=== PATIENT | female | born 2000 | race Caucasian/White ===

== ENCOUNTER 2019-05-18 07:37 | Inpatient (IN) | payer OTHER ==
[2019-05-18] MEDS ORDERED: Magnesium 2 GM/50 ML BAG (IN WATER) ONE ×2 (08:02→09:25)
[2019-05-18] MEDS ORDERED: Labetalol HCl 100 MG/20 ML VIAL ONE ×2 (08:02→15:15)
[2019-05-18 08:24] LABS: #Eosinphils 0.1 thou/uL (0.0-0.7); #Lymphocytes 1.6 thou/uL (1.20-3.40); #Neutrophils 10.6 thou/uL (1.40-6.50); %Basophils 0.1 % (0.0-1.0); %Eosinophils 0.8 % (0.0-10.0); %Lymphocytes 12.1 % (28.0-48.0); %Monocytes 7.2 % (0.0-4.0); %Neutrophils 79.8 % (31.0-61.0); Mean Corpuscular HGB CONC 31.8 g/dL (32.0-36.0); Mean Corpuscular Hemoglobin 24.7 pg (25.0-35.0); Mean Corpuscular Volume 77.7 fL (78.0-98.0); Mean Platelet Volume 8.5 fL (7.4-10.4); Platelet Count 278 thou/uL (130-400); RBC Distribution Width 16.2 % (11.5-14.5); Red Blood Cell (RBC) Count 2.82 mill/uL (4.00-5.20); White Blood Cell (WBC) Count 13.2 thou/uL (4.8-10.8)
[2019-05-18 08:32] LABS: Prothrombin Time 13.4 SEC (12.0-14.7)
[2019-05-18 08:33] LABS: PTT 38.5 SEC (22.9-36.1)
[2019-05-18 08:34] LABS: ALT (SGPT) 19 U/L (8-55); AST (SGOT) 20 U/L (5-34); Albumin 3.2 g/dL (3.5-5.0); Alkaline Phosphatase 114 U/L (40-100); Anion Gap 16 mmol/L (10-20); BUN (Urea Nitrogen) 6 mg/dL (7.0-18.7); Bilirubin, Total 0.3 mg/dL (0.2-1.2); Calc. Creatinine Clearance 0 mL/min (70-130); Calcium 8.3 mg/dL (7.8-10.44); Carbon Dioxide 20 mmol/L (22-29); Chloride 107 mmol/L (98-107); Estimated GFR-MDRD Greater than 90; Globulin 2.4 g/dL (2.4-3.5); Glucose 83 mg/dL (70-105); Potassium 3.3 mmol/L (3.5-5.1); Protein, Total 5.6 g/dL (6.0-8.3); Sodium 140 mmol/L (136-145)
[2019-05-18 08:36] LABS: Acetaminophen Less than 6.0 mcg/mL (10.0-30.0); Alcohol Less than 10 mg/dL (Less than 10); Magnesium 1.7 mg/dL (1.7-2.2); Salicylate Less than 8.0 mg/dL (15.0-30.0)
[2019-05-18 08:54] LABS: Hypochromia SLIGHT = 6-15 cells (100X) (0-5/hpf); MDiff Complete? YES; Microcytosis SLIGHT = 6-15 cells (100X) (0-5/hpf); Platelet Morphology Comment Appears Adequate; Polychromasia SLIGHT = 2-3 cells (100X) (0-2/hpf)
[2019-05-18 09:08] LABS: Bilirubin Negative (Negative); Blood, Urine Trace (Negative); Clarity Clear (Clear); Glucose, Urine (Dipstick) Normal (Negative); Leukocyte 75 Leu/uL (Negative); Nitrite Negative (Negative); Protein, Urine (Dipstick) Negative (Neg-Trace); RBC/HPF 0-3 HPF (0-3); Squamous Epithelial 0-3 HPF (0-3); Urobilinogen Normal mg/dL (Less than 2)
--- NOTE | 2019-05-18 09:10 | RAD ---
EXAM: CHEST ONE VIEW HISTORY: Dyspnea. Seizure activity this morning. Patient does not recall events. COMPARISON: None FINDINGS: The cardiac silhouette and pulmonary vasculature is within normal limits. The lungs are clear. The os seous structures are intact. IMPRESSION: No acute cardiopulmonary process.
[2019-05-18] MEDS ORDERED: Calcium Gluconate 4.6 MEQ in Sodium Chloride 0.9% 100 ML IVPB PRN (09:16)
[2019-05-18 09:18] LABS: Bacteria/HPF 1+ HPF (None Seen)
[2019-05-18 09:21] LABS: Amphetamine Not Detected (NotDetected); Barbiturates Screen Not Detected (NotDetected); Benzodiazepine Screen Not Detected (NotDetected); Cocaine Metabolite Screen Not Detected (NotDetected); Medtox Control Line Valid? VALID (VALID); Medtox Reader # READER 1; Methadone Not Detected (NotDetected); Methamphetamine Not Detected (NotDetected); Opiate Screen Not Detected (NotDetected); Oxycodone Screen Not Detected (NotDetected); Phencyclidine (PCP) Not Detected (NotDetected); THC/Cannabinoid Screen Not Detected (NotDetected); Tricyclic Screen Not Detected (NotDetected)
[2019-05-18] MEDS ORDERED: Magnesium Sulfate 20 gm/500 ml 20 GM/500 ML BAG IVPB SCH (09:30)
--- NOTE | 2019-05-18 09:36 | PDOC.EVN ---
Event Note - Event Note Event Note: OBGYN: Aware of Treponen I elevation in this patient of 0.1. Treponin I can be elevated after SZ activity. Nonetheless, I will order Cardiac ECHO to be conservative. Reviewed patient with the service tech/welder.
--- NOTE | 2019-05-18 09:44 | CT ---
HEAD CT WITHOUT CONTRAST: Date: 05/18/2019 HISTORY: Altered mental status. Seizure. COMPARISON: None. FINDINGS: There is a posterior left parietal scalp hematoma, near the vertex. No parenchymal hemorrhage. No ext ra-axial hematoma. No midline shift. Basilar cisterns are patent. Brain volume is age-appropriate. Co rtical modi-white matter differentiation is preserved. No hydrocephalus. Adequate aeration of the sin uses and mastoid air cells. Intact calvarium. IMPRESSION: 1. No acute intracranial process. 2. Left parietal scalp hematoma, near the vertex. POS: H
--- NOTE | 2019-05-18 09:51 | HP ---
TIME: 0920 hours. The time of initial acceptance for labor and delivery admission was 0910 hours. LOCATION: ER bed 3. REASON FOR ADMISSION: Suspected eclampsia. The patient is currently being escorted to Labor and Delivery with one of our labor and delivery nurses, and history and physical is being done by information I have received by direct verbal communication from Dr. Hurley, who is the emergency room provider today. HISTORY OF PRESENT ILLNESS: This is a 18-year-old G1, P1, who is status post vaginal delivery on Friday of last week, who was sent home on Friday at [facility]. We do not have those records. The patient's roommate says that she witnessed the patient having a seizure this morning at approximately 0600 hours. She was brought to the hospital for evaluation. On arrival to the ER, her pulse was 130 and her blood pressure was 159/112. The ER physician administered 2 g of magnesium sulfate IV. In the ER, the patient has received a CT scan of the head, which is pending, this was ordered due to the new onset seizure activity and the contusion that is periorbital on exam. The patient has also received labetalol 2 mg IV at 0808 in the ER per the ER physician report. The patient has also had a chest x-ray which is pending. I have taken the report on the patient as of 10 minutes ago and have accepted the patient for labor and delivery acute transport for suspected eclampsia. The patient is not currently postictal. It is important to note that this baby was for adoption and the parents were unaware of the patient's or delivery. However, the patient has her parents in attendance now at the room and they have been briefed on the state of events. PAST MEDICAL HISTORY: No evidence of prior hypertension per the ER physician. MEDICATIONS: No antihypertensive medications were in use. ALLERGIES: UNKNOWN AT THIS TIME, BUT WE WILL COMPLETE THIS AFTER I EVALUATE THE PATIENT. SURGERIES: Unknown at this time, but I will complete after I evaluate the patient. PHYSICAL EXAMINATION: The patient's blood pressure is 159/103, O2 saturation is 96%, and pulse is 110. This is after the 20 mg of labetalol. LABORATORY ASSESSMENT: Her CMP is within normal limits and her CBC shows a hemoglobin of 7 with a hematocrit of 22, and platelets that are normal of 278. Urine toxicology is pending. The ER physician states that the patient has a troponin level that was abnormal, but this is hard to read in the state and status post eclampsia. ASSESSMENT: This is a patient of 6 days from [facility], who is a 18-year-old G1, P1, with new onset seizure and hypertension with a diagnosis most compatible with eclampsia. Transport to Labor and Delivery is in process. PLAN: 1. Labor and delivery monitoring and magnesium sulfate. 2. As the patient received 2 g of magnesium sulfate, which is under the loading dose of 4 to 6 g, I have ordered another 2 g stat to be given in the ER before she becomes subtherapeutic. That initial magnesium dose was given at [address] scan results and chest x-ray results. 4. Urine toxicology pending. 5. Close monitoring in Labor and Delivery per protocol. Job ID: [id number]
--- NOTE | 2019-05-18 10:15 | PDOC.EVN ---
Event Note - Event Note Event Note: Head CT and CXR are both negative UTox was normal
--- NOTE | 2019-05-18 10:18 | PDOC.EVN ---
Event Note - Event Note Event Note: At 1017...patient now in [facility] in L&D
--- NOTE | 2019-05-18 10:23 | PRG ---
DATE OF SERVICE: 05/18/2019 Please label this status update on transport. In brief, I just talked to Pam, our L and D nurse, who ia with the patient in the ER. The patient's blood pressure is still elevated at over 160/110. However , she is currently getting her cardiac echo at bedside. As soon as that echo is done, we will transport her to Labor and Delivery and continue to treat her acute hypertension. I am on my way there now from L&D. Job ID: [id number] [facility]
--- NOTE | 2019-05-18 10:27 | ER ---
DATE OF SERVICE: 05/18/2019 LOCATION: ER, bed 3. OBGYN BEDSIDE EVAL In brief, I have now down in the ER and I have evaluated the patient at bedside. There is no evidence that she is postictal. She states that she was told that she had high blood pressure during her delivery, but never received magnesium sulfate nor was she sent home on any hypertensive medication. Her parents are at bedside. Her parents stated that about 3 years ago she was having some petit mal/absence-style seizures, for which she was evaluated at [facility]. They never gave her a formal diagnosis and she was never placed on any antiepileptic medications. She has had no similar activity for 2 to 3 years. I was at the bedside during the cardiac echo, and after the echo performance, away from the family, the heavy equipment technician told me that there was some wall thickening, which may be compatible with chronic hypertension. There is normal ejection fraction. I will await the formal echo result by Dr. Roman, who is on-call today. I have briefed her on the patient's situation. We are in the process of giving maintenance magnesium sulfate IV prior to transport to Labor and Delivery. My working diagnosis is still new-onset preeclampsia as the seizure activity was more grand mal by her roommate description versus petit mal. Job ID: [id number] [facility]
[2019-05-18] MEDS: Bacitracin Zinc Ointment 30 gm TUBE TOP SCH (11:37)
[2019-05-18 12:56] LABS: Troponin I 0.187 ng/mL (< 0.028)
[2019-05-18 13:21] VITALS: BMI 27.4
--- NOTE | 2019-05-18 15:13 | PDOC.EVN ---
Event Note - Event Note Event Note: Called for BP 162/101. I have ordered labetolol 40mg SIVP X 1 now. She has received 60 total prior to this dose. Mild TARIQ reported...Mag in use. Will order Tylenol as well.
[2019-05-18] MEDS ORDERED: Labetalol HCl 100 MG/20 ML VIAL SLOW IVP SCH (15:15)
[2019-05-18 15:23] LABS: Troponin I 0.251 ng/mL (< 0.028)
[2019-05-18] MEDS: Acetaminophen 500 MG TAB PO PRN (15:25)
[2019-05-18] MEDS ORDERED: FLU VACC QS2019-20(6MOS UP)/PF 60 MCG/0.5 ML SYRINGE IM ONE (15:45)
--- NOTE | 2019-05-18 15:47 | PDOC.EVN ---
Event Note - Event Note Event Note: Lasix 20 mg SIVP x 1 now ordered for SBP 162/90...2+ Bilateral edema
[2019-05-18] MEDS ORDERED: Furosemide 20 MG/2 ML VIAL SLOW IVP SCH (16:00)
--- NOTE | 2019-05-18 22:46 | PDOC.EVN ---
Event Note - Event Note Event Note: BP Bed check: BPs ok...continue magSulfate
--- NOTE | 2019-05-19 07:06 | PDOC.EVN ---
Event Note - Event Note Event Note: OBGYN 0700 HD2 (admitted 05/18/19) Doing well. Mag in use No severe pressures overnight UOP excellant and is now negative in I/) (UOP> intake) Mag off around 1000 this AM Follow off mag then
[2019-05-19] MEDS: Acetaminophen 500 MG TAB PO PRN ×2 (07:25→22:14)
[2019-05-19] MEDS: Bacitracin Zinc Ointment 30 gm TUBE TOP SCH (11:44)
--- NOTE | 2019-05-19 13:53 | PDOC.EVN ---
Event Note - Event Note Event Note: Received report from Dr. Rodriguez this AM. 18 yo WF s/p 1 week ago presented with eclamptic sz. Workup has included negative CT, CXR, ECHO. No c/o at present. Mg x 24 hrs, stopped at 10AM. BPs 130-140 systolic. Will transfer to floor.
[2019-05-19] MEDS: Labetalol 100 MG TAB PO SCH (21:32)
[2019-05-20] MEDS: Bacitracin Zinc Ointment 30 gm TUBE TOP SCH ×2 (03:18→08:47)
--- NOTE | 2019-05-20 06:38 | PDOC.PP ---
Post Progress Note Post Day #: PPD8 Subjective: Feeling good this AM. No specific complaints. PO intake tolerated: yes Ambulation: yes Vital Signs (12 hours) Temp Pulse Resp BP BP Pulse Ox 05/20/19 06:06 98.5 F 90 14 130/93 H 05/20/19 04:00 98.2 F 87 16 136/91 H 05/19/19 22:40 98 140/82 05/19/19 22:16 90 157/100 H 05/19/19 21:32 88 157/100 H 05/19/19 21:30 88 157/100 H 05/19/19 20:38 90 156/96 H 05/19/19 20:22 98.8 F 97 16 157/105 H 95 Weight Weight 74.843 kg - Physical Examination General: NAD Respiratory: non-labored breathing Neurological: no gross focal deficits Psychiatric: normal affect Result Diagrams: 05/18/19 08:03 05/18/19 08:03 - Assessment/Plan Doing well s/p eclamptic seizure. Mg turned off at 10 a yesterday. Labetalol 100 mg BID added last PM, BPs improved since that time. Would consider DC either late this PM or in AM.
[2019-05-20 08:41] VITALS: TEMP 98.1
[2019-05-20] MEDS: Labetalol 100 MG TAB PO SCH (08:45)
[2019-05-20 11:58] VITALS: BP 137/79
--- NOTE | 2019-05-20 16:03 | DIS ---
DATE OF ADMISSION: 05/18/2019 DATE OF DISCHARGE: 05/20/2019 TIME OF SERVICE: 1500 hours. PRINCIPAL ADMITTING DIAGNOSIS: eclampsia. SECONDARY DISCHARGE DIAGNOSIS: Persistent hypertension, . SUMMARY OF HOSPITAL COURSE: The patient was brought in early in the morning of 05/18 with a eclamptic seizure. She was noted to be approximately 6 days . She was found to have a seizure at home and brought in and noted to have blood pressure 159/112. CT evaluation was consistent with eclampsia with occipital lobe edema. Further workup was unremarkable. The patient received magnesium sulfate for 24 hours and was started on labetalol 100 p.o. b.i.d. She did well, had no further seizures, and blood pressure was 130s systolic on labetalol post discontinuation of magnesium sulfate. She is discharged home with 2 weeks of labetalol 100 p.o. b.i.d. She is going to follow up with her [facility]. Of note, baby was put up for adoption after delivery. The patient knows ER precautions for worsening headache, worsening blurred vision, etc. Job ID: [id number]
== END 2019-05-20 15:48 | disposition home or self-care (01) | DRG 776 ==
LOC: ERS 07:37 → L&D 09:47 → 3SW 05-19 14:22
PROVIDERS: ADMIT Obstetrics & Gynecology; ATTEND Obstetrics & Gynecology
DX: O15.2 Eclampsia complicating the puerperium (principal); O16.5 Unspecified maternal hypertension, complicating the puerperium
CPT/HCPCS: 36415; 70450; 71045; 80053; 80306; 80307; 81003; 81015; 82553; 83735; 84484; 85025; 85610; 85730; 93005; 93306; 96361; 96365; 96366; 96375; 96376; J1940; J3475